=== PATIENT | female | born 2000 | race African-American/Black ===

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

== ENCOUNTER 2020-01-05 07:44 | Emergency (ER) | payer OTHER ==
[~2020-01-05] VITALS: Ht 167.6 cm; Wt 68.0 kg
[~2020-01-05 07:44] MED LIST: IBUP-1022 PO; IBUP80TA PO
[2020-01-05] MEDS ORDERED: BISACODYL 5 MG TAB PO ONE (09:30)
[2020-01-05 09:38] VITALS: BP 131/75
--- NOTE | 2020-01-05 12:22 | REP ---
ABDOMINAL SERIES: Supine and erect views of the abdomen demonstrate no free air and no evidence of bowel obstruction. Moderate fecal material is seen in the rectosigmoid and right colon. I do not see significantly dilated small bowel loops. No abnormal calcifications are seen. An accompanying view of the chest demonstrates no acute infiltrate. Heart and mediastinum are within normal limits. IMPRESSION: Negative abdominal series. Unreviewed
== END 2020-01-05 09:45 | disposition home or self-care (01) ==
LOC: M ED 07:44 → EDBD 07:44 → M ED 09:45
DX: K59.00 Constipation, unspecified (principal)